=== PATIENT | male | born 1990 | race Two or more races ===

== ENCOUNTER → 2022-11-10 09:59 | Outpatient (BNVA) | payer SELFPAY | PROVIDERS: Visit Provider Physician Assistant Medical | DX: Z02.79 Encounter for issue of other medical certificate (principal) ==

== ENCOUNTER → 2025-10-10 09:49 | Outpatient (BNVA) | payer SELFPAY | PROVIDERS: Visit Provider Emergency Medicine | DX: Z02.79 Encounter for issue of other medical certificate (principal) ==